=== PATIENT | female | born 1990 | race Two or more races ===

== ENCOUNTER 2025-02-25 20:50 | Emergency (ER) | payer BC, MEDICAID, SELFPAY ==
[2025-02-25 20:51] VITALS: BMI 43.0
[2025-02-25 21:00] VITALS: BP 155/110; PULSE 112; RESP 18; TEMP 36.8; O2SAT 98
--- NOTE | 2025-02-25 21:08 | XR_ITS ---
Examination: CT abdomen and pelvis without contrast. Coronal 3-D reconstructions. Sagittal 2-D reconstructions. Date and time of exam:February 25, 2025 10:30 PM Indications: Lower abdominal pain beginning 4 days ago CTDI: vol (mGy): 16 DLP: (mGycm): 980 Technique: Axial images of the abdomen have been obtained, 3 mm slice thickness Intravenous contrast material has not been administered. Low dose protocols were performed. One or more of the following dose reduction techniques were used; automated exposure control, adjustment of the mA and/or KV according to patient size, use of iterative reconstruction technique. Findings: No visualized liver or splenic lesions Gallstones No pancreatic or adrenal mass No renal or ureteral calculi, no hydronephrosis Aorta normal size. Normal appendix. 12 mm fat-containing umbilical hernia Suspicious for 24 mm left pelvic cyst Intact urinary bladder The osseous structures are intact Impression: Cholelithiasis No renal or ureteral calculi, no hydronephrosis Normal appendix Recommend pelvic sonography to exclude 24 mm complex left pelvic cyst
[2025-02-25 21:37] LABS: Basophils # (Auto) 0.1 Thou/mm3 (0.0-0.2); Basophils % (Auto) 1 % (0-2.5); Eosinophils # (Auto) 0.1 Thou/mm3 (0.0-0.5); Eosinophils % (Auto) 1 % (0-10); Hematocrit 40.3 % (36.0-46.0); Hemoglobin 13.8 g/dL (12.0-16.0); Immature Granulocytes Auto 0.04 Thou/mm3 (0.00-0.00); Lymphocytes # (Auto) 3.7 Thou/mm3 (1.0-4.8); Lymphocytes % (Auto) 32 % (10-50); Mean Corpuscular HGB Conc 34.2 g/dl (31.0-37.0); Mean Corpuscular Hemoglobin 30.4 pg (25.0-35.0); Mean Corpuscular Volume 89 fL (80-100); Monocytes # (Auto) 0.7 Thou/mm3 (0.0-0.8); Monocytes % (Auto) 6 % (0-12); Neutrophils # (Auto) 6.8 Thou/mm3 (1.8-7.7); Neutrophils % (Auto) 60 % (37-80); Nucleated Red Blood Cell # 0.00 Thou/mm3 (0.00-0.00); Nucleated Red Blood Cell % 0 /100 WBC (0); Platelet Count 304 Thou/mm3 (140-440); RDW Standard Deviation 46.5 fL (36.4-46.3); Red Blood Count 4.54 Miln/mm3 (4.00-5.20); White Blood Count 11.4 Thou/mm3 (3.6-11.0)
[2025-02-25 21:58] LABS: Alanine Aminotransferase 57 U/L (10-49); Albumin, Serum 4.1 gm/dL (3.5-5.0); Albumin/Globulin Ratio 1.5 (1.2-2.2); Alkaline Phosphatase 103 U/L (46-116); Amylase 57 U/L (30-118); Anion Gap 11 (7-16); Aspartate Amino Transferase 35 U/L (0-34); BUN/Creatinine Ratio 11 Ratio (12-20); Bilirubin,Total 0.6 mg/dL (0.3-1.2); Blood Urea Nitrogen 9 mg/dL (9-23); Calcium 9.3 mg/dL (8.3-10.6); Calcium (Corrected) 9.3 mg/dL (8.5-10.1); Carbon Dioxide 27.5 mMol/L (20.0-31.0); Chloride 105 mMol/L (98-107); Creatinine (Component) 0.8 mg/dL (0.6-1.3); Estimated Creatinine Clearance 105.1 mL/min (>60); Globulin 2.7 gm/dL (2.3-3.5); Glucose 102 mg/dL (74-106); Osmolality,Calculated 283 (275-295); Potassium 3.6 mMol/L (3.4-5.1); Sodium 143 mMol/L (136-145); Total Protein 6.8 gm/dL (5.7-8.2); eGFR > 60 See Note
[2025-02-25 22:00] LABS: Collection Type, Urine Clean Catch
[2025-02-25 22:09] LABS: HCG Qualitative,Urine Negative
[2025-02-25 22:10] LABS: Bacteria,Urine Rare; Bilirubin,Urine Negative (Negative); Blood,Urine 1+ (Negative); Clarity,Urine Clear (Clear/Hazy); Color,Urine Lt-Yellow (Lt Yel-Yel); Glucose, Urine Negative (Negative); Ketones,Urine Negative (Negative); Leukocyte Esterase,Urine Negative (Negative); Nitrite,Urine Negative (Negative); PH,Urine 6.0 (5.0-7.0); Protein,Urine Negative (Neg - Trace); RBC,Urine 2 /hpf (0-3); Specific Gravity,Urine 1.022 (1.001-1.035); Squamous Epithelial Cell,Urine 11 /hpf (0-5); Urobilinogen,Urine Negative mg/dL (0.0-1.0); WBC,Urine 1 /hpf (0-5)
--- NOTE | 2025-02-25 23:39 | EDNOTE_ITS ---
ED Abdominal Pain RME/HPI General Chief Complaint: Abdominal Pain Stated complaint: PELVIC PAIN AND PRESSURE Time seen by provider: 02/25/25 21:03 Arrival date/time: 02/25/25 20:50 This is a case of 34-year-old female with no medical history came in in the emergency room due to abdominal pain sharp in character mostly on the right upper right lower and right pelvic area with nausea vomiting for 3 days worsening of the symptoms this patient decided to start consult here in the emergency room Limitations: no limitations Related Data Previous Rx's ?Medication ?Instructions ?Recorded famotidine 20 mg tablet 20 mg PO BID #60 tabs hydrocodone 5 mg-acetaminophen 325 1 tab PO Q6H PRN pa in #12 tabs 02/25/25 mg tablet ondansetron 4 mg disintegrating 4 mg PO Q8H PRN nausea and 02/25/25 tablet vomiting #20 tabs Allergies Allergy/AdvReac Type Severity Reaction Status Date / Time Penicillins Allergy Swelling Verified 02/25/25 20:51 of Lip/Tongue/Throat NKA* Allergy Uncoded 10/20/11 16:54 Review of Systems Review of Systems Systems Reviewed: All systems reviewed, normal except as documented Constitutional Constitutional: Reports system reviewed and no additional complaints, except as documented and Reports as per HPI ENT Ears, Nose, Mouth, and Throat: Denies dysphagia and Denies odynophagia Cardiovascular Cardiovascular: Reports system reviewed and no additional complaints, except as documented and Reports as per HPI Respiratory Respiratory: Reports system reviewed and no additional complaints, except as documented and Reports as per HPI Gastrointestinal Gastrointestinal: Reports system reviewed and no additional complaints, except as documented, Reports as per HPI, Reports abdominal pain, Denies belching, Denies bloating, Denies change in bowel habits, Denies change in stool character, Denies coffee ground emesis, Denies constipation, Denies cramping, Denies diarrhea, Denies dyspepsia, Denies dysphagia, Denies early satiety, Denies excessive flatus, Denies fecal incontinence, Denies heartburn, Denies hematemesis, Denies hematochezia, Denies loose stools, Denies melena, Reports nausea, Denies odynophagia, Denies tenesmus and Reports vomiting Neurologic Neurologic: Reports system reviewed and no additional complaints, except as documented and Reports as per HPI Past Medical History Social History SMOKING STATUS: Never smoker ED Exam General Limitations: Present no limitations General appearance: Present alert, in no apparent distress and other (Is awake alert oriented not in distress nontoxic looking well-hydrated well-nourished) Head Head exam: Present atraumatic, normocephalic and normal inspection Eye Eye exam: Present normal appearance, PERRL and EOMI ENT ENT exam: Present normal exam, normal oropharynx and mucous membranes moist Neck Neck exam: Present normal inspection, full ROM and trachea midline; Absent tenderness, meningismus, lymphadenopathy or thyromegaly Chest Chest inspection: Present normal inspection and symmetric chest wall rise; Absent tenderness Respiratory Respiratory exam: Present normal lung sounds bilaterally; Absent respiratory distress, wheezes, stridor, accessory muscle use or prolonged expiratory phase Cardiovascular Cardiovascular exam: Present regular rate, normal rhythm and normal heart sounds; Absent bradycardia, tachycardia, irregular rhythm, systolic murmur or diastolic murmur Abdominal Exam Abdominal exam: Present soft, tenderness (Mild tenderness on the right upper right lower and right pelvic area), normal bowel sounds and other (No CVA tenderness); Absent distention, guarding, rebound, rigidity, diminished bowel sounds, hyperactive bowel sounds, hypoactive bowel sounds, organomegaly, trauma, psoas sign, obturator sign, Ortiz's sign, Rovsing's sign, tenderness at McBurney's Point or hernia Extremities Exam Extremities exam: Present normal inspection and full ROM Back Exam Back exam: Present normal inspection and full ROM Neurological Exam Neurological exam: Present alert, oriented X3, CN II-XII intact, normal gait and reflexes normal; Absent motor sensory deficit Psychiatric Psychiatric exam: Present normal affect and normal mood Skin Skin exam: Present warm, dry, intact and normal color Course Quality Measures none Orders Category Date Time Status CT abdomen pelvis wo con Stat Exams 02/25/25 21:08 Completed Amylase Stat Lab 02/25/25 21:21 Completed CBC Stat Lab 02/25/25 21:21 Completed Comprehensive Metabolic Panel Stat Lab 02/25/25 21:21 Completed HCG Qualitative,Urine Stat Lab 02/25/25 21:54 Completed Urinalysis Stat Lab 02/25/25 21:54 Completed Famotidine [Pepcid] Med 02/25/25 23:33 Discontinued 40 mg PO X1 ONE HYDROcodone*/APAP 5/325 [Sigurd 5/325] Med 02/25/25 23:33 Discontinued 1 tab PO X1 ONE Ketorolac Inj [Toradol Inj] Med 02/25/25 23:33 Discontinued 30 mg IM X1 ONE Ondansetron Odt [Zofran Odt] Med 02/25/25 23:33 Discontinued 4 mg PO X1 ONE Vital Signs Vital signs: Vital Signs Temperature 98.3 F 02/25/25 21:00 Pulse Rate 112 H 02/25/25 21:00 Respiratory Rate 18 02/25/25 21:00 Blood Pressure 155/110 H 02/25/25 21:00 Pulse Oximetry (%) 98 02/25/25 21:00 Oxygen Delivery Method Room Air 02/25/25 21:00 Oxygen saturation is 98% in room air Abdominal Pain MDM MDM Narrative MDM Narrative:: This is a case of 34-year-old female with no medical history came in in the emergency room due to abdominal pain sharp in character mostly on the right upper right lower and right pelvic area with nausea vomiting for 3 days worsening of the symptoms this patient decided to start consult here in the emergency room physical examination patient is awake alert oriented not in distress nontoxic looking well-hydrated well-nourished abdominal exam is benign nonsurgical no guarding no rebound no rigidity mild tenderness on the right upper right lower and right pelvic area negative for guarding negative for rebound negative for rigidity negative psoas negative straight or negative Rovsing's and McBurney's negative Ortiz sign negative CVA tenderness blood test showed no leukocytosis no anemia kidney and liver function is normal no electrolyte imbalance amylase is normal urinalysis normal CT scan of the abdomen showed a cholelithiasis pelvic cyst and umbilical hernia I did not perform any pelvic ultrasound since the cyst is very small 24 mm patient only need to see an OB stock broker supervisor for further evaluation and treatment of pelvic cyst she was also advised to see a [employer] sales consultant for cholelithiasis and umbilical hernia and to see a general surgeon for possible surgery for any recurrence worsening persistent symptoms or any emergent concern return precaution in the emergency room immediately or call 911 patient was given Sigurd Zofran and Pepcid here in the emergency room which improved and resolved the pain patient was also prescribed with this medication Patient was discharged with comfortable condition walking with stable gait. Patient verbalized no further complains explained diagnosis and answered patient question. Patient is comfortable with the proposed management plan including the need to follow up with his/her primary care physician and any specialist if applicable Discussed patient for any urgent condition or worsening sx, He/She needed to go to emergency room immediately or call 911. Patient acknowledge the responsibility to follow up as instructed and to monitor her/his symptoms. For any persistence of the symptoms for more than 3-5 days return precaution advised. Discussed the result of the test and was given printed discharge instruction Patient data External records reviewed:: [facility] previous records Clinical information provided by:: patient Social determinants that could affect healthcare access:: none Patient has the following chronic illnesses:: None How is presenting disease/condition affected by chronic disease/condition?: no chronic disease Evaluation data The following diagnostics were reviewed and interpreted by me:: lab results and radiology exam(s) Lab and/or radiology exams considered but not ordered:: Reviewed Interpretation Summary: Reviewed Medications / Prescriptions Medications or Prescriptions considered but not ordered:: Given Medication administrations:: Medication Administration History Discontinued Medications Hydrocodone Bitart/Acetaminophen (Hydrocodone/Apap 5/325 Tablet) 1 tab PO X1 ONE Stop: 02/25/25 23:34 Famotidine (Famotidine 20 Mg Tablet) 40 mg PO X1 ONE Stop: 02/25/25 23:34 Ketorolac Tromethamine (Ketorolac Inj 60 Mg/2 Ml Vial) 30 mg IM X1 ONE Stop: 02/25/25 23:34 Ondansetron HCl (Ondansetron Odt 4 Mg Tabrap) 4 mg PO X1 ONE; Protocol Stop: 02/25/25 23:34 Given Consultations Consultation(s) initiated? (list below): No Diagnosis Differential diagnosis abdominal pain: abdominal pain, acute appendicitis, calculus of kidney, diverticulitis, gastroenteritis and other (Cholelithiasis) Most likely diagnosis given after review of the tests above:: Cholelithiasis Admission Indicated Admission indicated?: not indicated Explain why admission is indicated or not indicated:: Not indicated Admission Request Was there a request for admission?: No Admission Attestation Admission request attestation: Not indicated Disposition Plan Disposition Plan: Discharge Discharge Attestation Discharge Attestation: The patient and all family members were given an opportunity to ask questions and understood the discharge instructions. Discharge instructions specifically effects, indications for sooner follow up or return to the emergency department, and the expected course of current diagnosis. Patient condition: Stable Discharge Plan Plan Patient Disposition: HOME (Self Care) Patient condition on transfer: Stable Prescriptions/Referrals Prescriptions/Med Rec: New hydrocodone-acetaminophen 5-325 mg tablet 1 tab PO Q6H MDD max 4 tabs per day PRN (Reason: pain) Qty: 12 0RF famotidine 20 mg tablet 20 mg PO BID Qty: 60 0RF ondansetron 4 mg tablet,disintegrating 4 mg PO Q8H PRN (Reason: nausea and vomiting) Qty: 20 0RF Referrals: Georgiana Michael PA-C [Primary Care Provider, Family Practice] - In 1 week Problem List Clinical Impression: Abdominal pain, Cholelithiasis, Hernia, umbilical, Pelvic cyst Patient/Caregiver Discharge Instructions Education Materials: Abdominal Pain, Treating Gallstones, Ovarian Cysts, ED Hernia (Adult) Additional Instructions: Follow-up with your primary care physician in 2 days for reevaluation and to be referred to [employer] retailer sales consultant for umbilical hernia and cholelithiasis General Surgeon for possible surgery and OB stock broker supervisor for pelvic cyst recurrence persistent worsening symptoms or any emergent concern call 911 or go to the nearest emergency room take your medication as directed keep hydrated avoid dairy fats high cholesterol foods Print Language: Slovak Stand Alone Forms: Sumi Award Info., Patient Portal Info Letter PA/IDRIS Supervising Physician PA/D[employer]EL [employer]CO[employer] OPERATOR Supervising Physician: Dr.d Gonsales
[2025-02-26] MEDS: HYDROcodone/APAP 5/325 TABLET 1 TAB PO (00:06)
[2025-02-26] MEDS: ONDANSETRON ODT 4 MG TABRAP PO (00:06)
[2025-02-26] MEDS: FAMOTIDINE 20 MG TABLET 40 MG PO (00:06)
== END 2025-02-26 00:20 | disposition home or self-care (01) ==
PROVIDERS: Nurse Practitioner Family; Emergency Provider Emergency Medicine; PCP Physician Assistant
DX: K80.20 Calculus of gallbladder without cholecystitis without obstruction (principal); N94.89 Other specified conditions associated with female genital organs and menstrual cycle; K42.9 Umbilical hernia without obstruction or gangrene
CPT/HCPCS: 36415; 74176; 80053; 81001; 81025; 82150; 85025; 99284; Q0162; A9270

== ENCOUNTER → 2025-04-17 | Outpatient (CLI) | payer BC, MEDICAID, SELFPAY ==
--- NOTE | 2025-04-17 11:00 | XR_ITS ---
Examination: Transvaginal ultrasound of the pelvis, complete Technique: Transvaginal sonographic images pelvis performed using lawrence scale imaging Exam date and time: April 17, 2025, 1111 hours INDICATIONS: 21 mm left pelvic cyst on CT abdomen pelvis 02/25/2025 FINDINGS: Uterus 8.0 cm uterine fibroid 16 x 13 x 15 mm Endometrial stripe 0.8 cm Right ovary 2.78 cm arterial flow Left ovary 2.9 cm arterial flow No fluid in the cul-de-sac IMPRESSION: Small area of uterine fibroid degeneration 16 x 13 x 15 mm No adnexal mass.
== END | disposition home or self-care (01) ==
PROVIDERS: PCP Physician Assistant
DX: D25.9 Leiomyoma of uterus, unspecified (principal)
CPT/HCPCS: 76830